=== PATIENT | female | born 1980 | race Caucasian/White ===

== ENCOUNTER 2016-12-14 23:15 | Emergency (ER) | payer MEDICAID ==
[2016-12-14 23:16] VITALS: BMI 23.3
[2016-12-14 23:24] VITALS: BP 125/70; TEMP 98.1
[2016-12-14] MEDS ORDERED: Tetanus/Diphtheria Toxoids 0.5 ml Syringe IM ONE (23:59)
[2016-12-15] MEDS ORDERED: Acetaminophen-Codeine 300/30 mg Tab PO ONE (00:32)
--- NOTE | 2016-12-15 01:02 | C.PDOC ---
History Of Present Illness 36 y/o female presents to the ED for evaluation of an injury which she sustained to her left third finger [employer]. Patient state she accidentally closed a wooden door onto her finger, leading to her injury. She notes pain, swelling, and a laceration to her left third fingertip. Patient is unaware of her Tetanus immunization status. She denies extremity numbness/weakness or active bleeding at this time. - HPI Time Seen by Provider: 12/14/16 23:47 Chief Complaint (Nursing): Trauma History Per: Patient History/Exam Limitations: no limitations Onset/Duration Of Symptoms: Hrs Location Of Injury: Left: Hand (3rd digit ) Additional History Per: Patient Past Medical History Reviewed: Historical Data, Nursing Documentation, Vital Signs Vital Signs: Last Vital Signs Temp 98.1 F 12/14/16 23:22 Pulse 78 12/15/16 01:09 Resp 20 12/15/16 01:09 BP 125/70 12/14/16 23:22 Pulse Ox 100 12/15/16 06:58 - Medical History PMH: No Chronic Diseases Surgical History: No Surg Hx Family History: States: Unknown Family Hx - Social History Hx Tobacco Use: No Hx Alcohol Use: No Hx Substance Use: No - Immunization History Hx Tetanus Toxoid Vaccination: No Hx Influenza Vaccination: No Hx Pneumococcal Vaccination: No Review Of Systems Skin: Positive for: Other (pain, swelling and laceration to left 3rd fingertip. no active bleeding ) Neurological: Negative for: Weakness, Numbness Physical Exam - Physical Exam Appears: Non-toxic, No Acute Distress Skin: Warm, Dry, Ecchymosis (to distal and palmar aspects of left 3rd digit), Other (+small superficial abrasion at the base of left proximal nailbed. no active bleeding ) Head: Atraumatic, Normacephalic Eye(s): bilateral: Normal Inspection Oral Mucosa: Moist Neck: Supple Extremity: Normal ROM, Tenderness (on palpation of distal eft 3rd finger), Capillary Refill (less than 2 seconds ), No Deformity, No Swelling Pulses: Left Radial: Normal, Right Radial: Normal Neurological/Psych: Oriented x3, Normal Speech, Normal Cognition, Normal Motor, Normal Sensation Gait: Steady ED Course And Treatment O2 Sat by Pulse Oximetry: 100 (on RA) Pulse Ox Interpretation: Normal Progress Note: Left hand XR ordered and reviewed. Patient received Tetanus immunization. Wound was cleansed with normal saline, area was sealed with skin adhesive. Patient tolerated well. Finger splint applied by RN. On reassessment, patient is resting comfortably and reports an improvement in her symptoms. Patient is stable for discharge and is advised to follow up with her PMD within 1-2 days for further evaluation. Laceration - Laceration Repair left 3rd digit Wound Length (In cm): 1 Description Of Wound: Linear (abrasion) Wound Examination: Irrigated With Saline, No FB With Wound Exploration, No Tendon Injury With Wound Exploration Wound Closure: Skin Glue Wound Complexity: Simple Disposition Counseled Patient/Family Regarding: Studies Performed, Diagnosis, Need For Followup, Rx Given - Disposition Referrals: Ruperto Aviles MD [Non-Staff] - Disposition: HOME/ ROUTINE Disposition Time: 00:59 Condition: STABLE Additional Instructions: May apply ICE Follow up with PMD Return to ER if worse Prescriptions: Ibuprofen [Motrin] 600 mg PO Q6H #20 tab Instructions: Crush Injury (ED) - Clinical Impression Clinical Impression: Finger injury, Abrasion of finger of left hand - PA / LAW FIRM RECEPTIONIST / Resident Statement MD/DO has reviewed & agrees with the documentation as recorded. - Scribe Statement The provider has reviewed the documentation as recorded by the Scribe (Denise Claros) All medical record entries made by the Scribe were at my direction and personally dictated by me. I have reviewed the chart and agree that the record accurately reflects my personal performance of the history, physical exam, medical decision making, and the department course for this patient. I have also personally directed, reviewed, and agree with the discharge instructions and disposition.
[2016-12-15] MEDS ORDERED: Tetanus/Diphtheria Toxoids 0.5 ml Syringe IM ONE (01:04)
[2016-12-15 01:09] VITALS: PULSE 78; RESP 20
[2016-12-15 06:47] VITALS: O2SAT 100
--- NOTE | 2016-12-15 09:07 | RAD ---
PROCEDURE: Left middle finger radiographs. HISTORY: door slammed on 3rd finger COMPARISON: None. TECHNIQUE: AP radiograph of the left hand, as well as spot oblique and lateral images of left middle finger were obtained. FINDINGS: LEFT MIDDLE FINGER: Left middle finger normal, without fracture of focal lesion. Remainder of the left hand (as seen on the AP view) is grossly unremarkable. JOINTS: Normal. SOFT TISSUES: Normal. OTHER FINDINGS: None. IMPRESSION: Normal left middle finger radiographs.
== END 2016-12-15 01:09 | disposition home or self-care (01) ==
LOC: C.ER 23:15
DX: S60.413A Abrasion of left middle finger, initial encounter (principal); W23.1XXA Caught, crushed, jammed, or pinched between stationary objects, initial encounter; Y92.89 Other specified places as the place of occurrence of the external cause

== ENCOUNTER 2016-12-19 22:21 | Emergency (ER) | payer MEDICAID ==
[2016-12-19 22:21] VITALS: BMI 23.3
[2016-12-19] MEDS ORDERED: Bacitracin 500 Units/gm Oint Foilpak UD ONE (22:51)
--- NOTE | 2016-12-19 22:57 | C.PDOC ---
History Of Present Illness Patient came to ED for wound check. Patient was evaluated in ED 4 days ago for the left 3rd finger injury that was treated with Skin adhesives and steri strips. Patient sts steri strips started to fell off and she is worried that her wound will open up. Patient was seen by PMD after the ED visit and was given oral antibiotics (pt is unsure about the name of meds). Time Seen by Provider: 12/19/16 22:37 Chief Complaint (Nursing): Abnormal Skin Integrity History Per: Patient History/Exam Limitations: no limitations Onset/Duration Of Symptoms: Days (4) Current Symptoms Are (Timing): Better Location Of Injury: Left: Face (3rd finger) Quality Of Symptoms: Painful, Itching Severity: Mild Past Medical History Reviewed: Historical Data, Nursing Documentation, Vital Signs Vital Signs: Last Vital Signs Temp 98.2 F 12/19/16 22:37 Pulse 73 12/19/16 22:37 Resp 16 12/19/16 22:37 BP 112/74 12/19/16 22:37 Pulse Ox 98 12/19/16 22:57 Family History: States: Unknown Family Hx - Social History Hx Tobacco Use: No Hx Alcohol Use: No Hx Substance Use: No - Immunization History Hx Tetanus Toxoid Vaccination: Yes (4 days ago) Hx Influenza Vaccination: No Hx Pneumococcal Vaccination: No Review Of Systems Except As Marked, All Systems Reviewed And Found Negative. Physical Exam - Physical Exam Appears: Well, Non-toxic Skin: Normal Color, No Rash Head: Atraumatic, Normacephalic Eye(s): bilateral: Normal Inspection Extremity: Other (left 3rd finger with the healing laceration, no signs of infection.) Neurological/Psych: Oriented x3, Normal Speech, Normal Cognition ED Course And Treatment O2 Sat by Pulse Oximetry: 98 Progress Note: Steri-strips were removed, wound was cleaned with NS, Bacitracin was applied, dressing was applied by me. Patient was given contact info of the hand specialist . Disposition - Disposition Referrals: Gary Conde MD [Staff Provider] - Disposition: HOME/ ROUTINE Disposition Time: 22:56 Condition: STABLE Additional Instructions: Follow up with Hand specialist within 1-2 days. Return to Ed if feel worse. Instructions: Acute Wound Care (ED) - Clinical Impression Clinical Impression: Visit for wound check
[2016-12-20 12:16] VITALS: BP 112/74; PULSE 73; RESP 16; TEMP 98.2; O2SAT 98
== END 2016-12-19 23:02 | disposition home or self-care (01) ==
LOC: C.ER 22:21
DX: Z48.00 Encounter for change or removal of nonsurgical wound dressing (principal)

== ENCOUNTER 2016-12-22 14:05 | Emergency (ER) | payer MEDICAID ==
[2016-12-22 14:06] VITALS: BMI 23.3
[2016-12-22 14:19] VITALS: BP 126/74; PULSE 66; RESP 16; TEMP 98.5; O2SAT 100
--- NOTE | 2016-12-22 14:49 | C.PDOC ---
History Of Present Illness 36 yr old female presents to the ER for evaluation of retained foreign body to the right 3rd finger for the past 1 week. Patient states it feels like a glass shard beneath nail. Denies redness, swelling, discharge from the area, hand pain , numbness or weakness. RETAINED FB R 3 FINGER X 1 WEEK. PS FEELS GLASS SHARD BENEATH NAIL. NO REDNESS, SWELL, DC EXAM R HAND +VISUALIZED GLASS FB BENEATH 3RD FINGERNAIL. UNABLE TO VISUALIZE COMPLETELY DUE TO NAILPOLISH. NO SIGNS INFXN MDM PT ADVISED NEED FOR FINGER BLOCK AND WILL ATTEMPT REMOVAL W TWEEZERS. ADVISED OF POSSIBILITY OF NEED TO REMOVE NAIL IN ORDER OT EXTRACT. PT REFUSING ER MGMT PLAN, PREFERS FU W PMD AND HAND SPECIALIST REFERRAL Time Seen by Provider: 12/22/16 14:46 Chief Complaint (Nursing): Abnormal Skin Integrity History Per: Patient History/Exam Limitations: no limitations Onset/Duration Of Symptoms: Days (1 week) Past Medical History Reviewed: Historical Data, Nursing Documentation, Vital Signs Vital Signs: Last Vital Signs Temp 98.5 F 12/22/16 14:17 Pulse 66 12/22/16 14:17 Resp 16 12/22/16 14:17 BP 126/74 12/22/16 14:17 Pulse Ox 100 12/22/16 14:59 Family History: States: No Known Family Hx - Social History Hx Tobacco Use: No Hx Alcohol Use: No Hx Substance Use: No - Immunization History Hx Tetanus Toxoid Vaccination: Yes (4 days ago) Hx Influenza Vaccination: No Hx Pneumococcal Vaccination: No Review Of Systems Except As Marked, All Systems Reviewed And Found Negative. Musculoskeletal: Positive for: Other ((+) Retained FB to the right hand, 3rd finger ). Negative for: Hand Pain Neurological: Negative for: Weakness, Numbness Physical Exam - Physical Exam Appears: Non-toxic, No Acute Distress Skin: Warm, Dry Head: Atraumatic, Normacephalic Oral Mucosa: Moist Extremity: Capillary Refill (<2), Other (Right Hand - Visualized a glass FB beneath 3rd fingernal. Unable to visulize completely due to nailpolish. No signs of infection. ) Neurological/Psych: Oriented x3, Normal Speech, Normal Motor ED Course And Treatment O2 Sat by Pulse Oximetry: 100 (RA ) Pulse Ox Interpretation: Normal Medical Decision Making Medical Decision Making: NOTE: Patient advised in need for finger block and will attempt removal with tweezers. Advised of possibility of need to remove nail in order to extract. Patient is refusing ER management plan, prefers to follow up with PMD and hand specialist referral. Disposition Counseled Patient/Family Regarding: Diagnosis, Need For Followup - Disposition Referrals: China Caballero MD [Staff Provider] - [facility] [Outside] [facility] [Outside] Disposition: HOME/ ROUTINE Disposition Time: 14:58 Condition: GOOD Additional Instructions: YOU HAVE BEEN OFFERED REMOVAL OF RETAINED FOREIGN BODY IN YOUR FINGER AND HAVE REFUSED. FOLLOW UP WITH YOUR PMD AND/OR HAND SURGERY FOR FURTHER EVALUATION. Instructions: Soft Tissue Foreign Body (ED) - Clinical Impression Clinical Impression: Foreign body finger - Scribe Statement The provider has reviewed the documentation as recorded by the Scribe Jane Perez Provider Attestation: All medical record entries made by the Scribe were at my direction and personally dictated by me. I have reviewed the chart and agree that the record accurately reflects my personal performance of the history, physical exam, medical decision making, and the department course for this patient. I have also personally directed, reviewed, and agree with the discharge instructions and disposition.
== END 2016-12-22 15:01 | disposition home or self-care (01) ==
LOC: C.ER 14:05
DX: M79.5 Residual foreign body in soft tissue (principal)